=== PATIENT | female | born 1955 | race Caucasian/White ===

== ENCOUNTER 2023-09-06 07:41 | Day surgery (SDC) | payer OTHER, SELFPAY ==
[2023-09-06] VITALS (7 sets, daily range): BP systolic 83–112; BP diastolic 52–79; PULSE 67–74; RESP 14–16; TEMP 36.4–36.6; O2SAT 95–97; BMI 24.1
[2023-09-06] MEDS: LACTATED RINGERS 1000 ML 1,000 ML 100 ML IV (08:30)
[2023-09-06] MEDS: SODIUM CHLORIDE 0.9 % (FLUSH) 10 ML SYRINGE IVF (08:31)
--- NOTE | 2023-09-06 08:39 | P.GSOP_ITS ---
Operative Note Pre-op diagnosis: 1. Enlarging left mid back mass and right upper quadrant abdominal wall mass. Post-op diagnosis: 1. Left mid back lipoma. 2. Right upper quadrant abdominal wall lipoma. Type of Procedure: 1. Excision of left mid back mass. 2. Excision of right upper quadrant abdominal wall mass. Indications: 68-year-old female was seen in clinic for evaluation of a left mid back mass and right upper quadrant mass that she noticed many years ago. The left mid back mass has been growing in size. Patient noticed that her right upper quadrant mass is getting larger in size with certain positions. This was not tender to palpation. On clinical exam in the right upper quadrant just under the lowest rib there was a 3 x 2 cm soft tissue mass that was not tender to palpation. In the left mid back just lateral to the spine there is a golf ball- sized flattened soft tissue mass that is not very mobile and seems to be attached to the muscle fascia. This is most likely a lipoma. This was not tender to palpation. Given patient's clinical history and an enlarging nature of the masses, surgical excision was recommended. The procedure was discussed in detail. The risks associated with the procedure including infection, bleeding, low risk of recurrence, and the need for additional procedures were all discussed with the patient, and she agreed to proceed. Procedure Description: After discussing the risks and benefits of the procedure, the patient signed informed consent.? The operative site was marked and the patient was brought to the operating room and placed on the operating table in the right lateral decubitus position.? Care was taken to pad the patient's pressure points.?? The patient was then sedated by anesthesia.?? The operative site was then prepped and draped in the usual sterile fashion.? A time-out was then performed. I first started with excision of the left mid back mass. Local anesthetic was injected at the surgical site. A vertical skin incision was made with a scalpel. Subcutaneous fat was divided with cautery. The mass had an appearance of lipoma. The mass was mobilized off subcutaneous tissues bluntly and with cautery and excised. The mass was measuring 5.5 x 2.5 cm. This was sent to pathology. Hemostasis was achieved with cautery. The incision was then closed in layers with interrupted 2-0 and 3-0 Vicryl sutures. The skin was closed with a running 4-0 Monocryl stitch. The length of the incision was 5 cm. Steri- Strips and sterile pressure dressings were placed over the incision. The patient was then positioned supine on the procedure table. I then proceeded with excision of the right upper quadrant abdominal wall mass. Surgical site was reprepped and redraped in the usual sterile fashion. Local anesthetic was injected at the surgical site. A horizontal skin incision was made with a scalpel. Dermis was divided with cautery. The mass was mobilized off subcutaneous tissues with cautery and bluntly. The mass had an appearance of benign lipoma. It was measuring 3 x 1.5 cm. This was sent to pathology. Hemostasis was achieved with cautery. The incision was then closed with interrupted 3-0 Vicryl sutures. The skin was closed with a running 4-0 Monocryl stitch. The length of the incision was 2.5 cm. Steri-Strips and sterile pre ssure dressings were placed over the incision. Sterile dressings were then applied. ? The patient was then woken and transported to the recovery area in stable condition. ? The patient tolerated the procedure well. Findings: Both masses had the appearance of lipomas. Anesthesia: MAC and local Surgeon: Sienna Schuler MD Estimated blood loss (mL): 5 Additional Specimen Information: 1. Left back mass. 2. Right upper quadrant abdominal wall mass. Condition: stable Disposition: same day Date of procedure: 09/06/23
[2023-09-06] MEDS: CEFAZOLIN 2 GM INJ IVP (08:56)
[2023-09-06] MEDS: BUPIVACAINE 0.25% 30 ML INJECTION (09:04)
--- NOTE | 2023-09-06 09:44 | W.ANESCHARGE ---
Anesthesia Charges Start Date/Time Anesthesia Start Date: 09/06/23 Anesthesia Start Time: 08:51 Stop Date/Time Anesthesia Stop Date: 09/06/23 Anesthesia Stop Time: 09:44
== END 2023-09-06 11:30 | disposition home or self-care (01) ==
PROVIDERS: Visit Provider Surgery
PROC: (CPT 21931; principal; 2023-09-06 08:45)
DX: D17.1 Benign lipomatous neoplasm of skin and subcutaneous tissue of trunk (principal)
CPT/HCPCS: 21931; 22903; 00300; 88304; J0665; J0690; J2250; J2704; J3010; J7120